=== PATIENT | female | born 1990 | race African-American/Black ===

== ENCOUNTER 2016-11-04 06:35 | Emergency (ER) | payer OTHER ==
[2016-11-04] MEDS ORDERED: SODIUM CHLORIDE 0.9% 1,000 ML IV ONE (07:16)
[2016-11-04] MEDS ORDERED: HYDROmorphone 1 MG/ML SYRINGE IVP STA ×2 (07:16→09:28)
[2016-11-04] MEDS ORDERED: ONDANSETRON 4 MG/2 ML VIAL IVP STA (07:16)
[2016-11-04] MEDS ORDERED: HYDROmorphone 1 MG/ML SYRINGE ONE ×2 (07:23→09:36)
[2016-11-04] MEDS ORDERED: ONDANSETRON 4 MG/2 ML VIAL ONE (07:23)
== END 2016-11-04 10:57 | disposition home or self-care (01) ==
DX: N83.9 Noninflammatory disorder of ovary, fallopian tube and broad ligament, unspecified (principal); R10.30 Lower abdominal pain, unspecified
CPT/HCPCS: 36415; 51798; 76830; 76856; 80053; 81001; 81025; 83690; 84702; 85025; 93976; 96374; 96375; 96376; 99283; 99284; J1170

== ENCOUNTER 2017-08-02 09:12 | Emergency (ER) | payer OTHER ==
[2017-08-02 09:43] LABS: HCG UR QUAL NEGATIVE
[2017-08-02] MEDS ORDERED: ONDANSETRON ODT 4 MG TABLET TL STA (10:17)
[2017-08-02] MEDS ORDERED: ALBUTEROL NEB 2.5 MG/3 ML INH STA (10:17)
--- NOTE | 2017-08-02 10:19 | XRAY Preliminary Report ---
Exam: XR CHEST 2 VIEW PA/LAT IMPRESSION: Normal 2-view chest radiography. [facility] SITE ID: [id number]
--- NOTE | 2017-08-02 10:20 | ED Physician Documentation ---
PD HPI URI - Stated complaint Stated Complaint: COUGH/CONGESTION - Chief complaint Chief Complaint: General - History obtained from History obtained from: Patient, Family - History of Present Illness Timing - onset: How many days ago (3) Timing duration: Days (3) Timing details: Gradual onset Pain level max: 5 Pain level now: 4 Associated symptoms: Fever (101), Chills, Sweats, Nasal congestion, Rhinorrhea, Sore throat, Productive cough (yellow/green), Dyspnea (mild). No: Ear pain, Sinus pain, Hemoptysis, Chest pain, NVD, Bilateral edema Contributing factors: Sick contact. No: Travel, Immunocompromised, Unimmunized Improves by: Rest, Medication Worsened by: Activity, Breathing Recently seen: Not recently seen Review of Systems Ears: denies: Ear pain GI: reports: Nausea, Vomiting (once). denies: Abdominal Pain, Diarrhea, Hematemesis, Bloody / black stool : denies: Dysuria, Frequency, Hesitancy, Now EGA Skin: denies: Rash PD PAST MEDICAL HISTORY - Past Medical History Past Medical History: No Cardiovascular: None Respiratory: None Neuro: None Endocrine/Autoimmune: None GI: None DISTRIBUTION DISPATCHER: Other : None HEENT: None Psych: None Musculoskeletal: None Derm: None - Past Surgical History Past Surgical History: No - Present Medications Home Medications: Ambulatory Orders Medication Instructions Recorded Confirmed Hydrocodone/Acetaminophen [[place]man 1 each PO Q6H PRN #20 tablet 11/04/16 08/02/17 5-325 Tablet] Albuterol Sulf [Ventolin Hfa 2 puffs INH Q4HR PRN #1 inhaler 08/02/17 Inhaler] Benzonatate [Tessalon Perle] 100 - 200 mg PO TID PRN #30 capsule 08/02/17 Cetirizine HCl/Pseudoephedrine 1 each PO BID PRN #30 tab.er.12h 08/02/17 [Zyrtec-D Tablet] Ondansetron Odt [Zofran] 4 mg TL Q6H PRN #10 tablet 08/02/17 - Allergies Allergies/Adverse Reactions: Allergies Allergy/AdvReac Type Severity Reaction Status Date / Time No Known Drug Allergies Allergy Verified 11/04/16 06:48 - Social History Does the pt smoke?: No Smoking Status: Never smoker Does the pt drink ETOH?: No Does the pt have substance abuse?: No - Immunizations Immunizations are current?: Yes - POLST Patient has POLST: No PD ED PE NORMAL - Vitals Vital signs reviewed: Yes - General General: Alert and oriented X 3, No acute distress, Well developed/nourished - HEENT HEENT: PERRL, Ears normal, Moist mucous membranes (Clear rhinorrhea), Other ( Mild posterior oropharyngeal erythema without exudates. Uvula midline. No trismus.) - Neck Neck: Supple, no meningeal sign, No adenopathy - Cardiac Cardiac: RRR, Strong equal pulses - Respiratory Respiratory: No respiratory distress, Other (Diminished breath sounds bilaterally, but clear) - Abdomen Abdomen: Soft, Non tender, Non distended - Derm Derm: Warm and dry - Neuro Neuro: Alert and oriented X 3 - Psych Psych: Normal mood, Normal affect Results - Vitals Vitals: Vital Signs - 24 hr 08/02/17 08/02/17 09:23 10:25 Temperature 36.0 C L Heart Rate 96 80 Respiratory 14 16 Rate Blood Pressure 151/104 H O2 Saturation 97 Oxygen O2 Source Room air - Labs Labs: Laboratory Tests 08/02/17 09:30 Ur Specific [place] 1.020 Urine HCG, Qual NEGATIVE - Rads (name of study) Chest x-ray Radiology: Prelim report reviewed, EMP read contemporaneously, See rad report ( No acute disease) PD MEDICAL DECISION MAKING - ED course Complexity details: reviewed results, re-evaluated patient, considered differential, d/w patient, d/w family ED course: Patient is a 27-year-old female who presents to the emergency department with what appears to be a viral upper respiratory infection. She is well-appearing, nontoxic. Afebrile. No hypoxia. No respiratory distress. Feels better after nebulizer treatment, I will prescribe an inhaler for home. Patient counseled regarding signs and symptoms for which I believe and urgent re-evaluation would be necessary. Patient with good understanding of and agreement to plan and is comfortable going home at this time This document was made in part using voice recognition software. While efforts are made to proofread this document, sound alike and grammatical errors may occur. Departure - Departure Disposition: 01 Home, Self Care Clinical Impression: Viral URI Condition: Good Instructions: ED URI Viral Follow-Up: IZZY TERRELL [Primary Care Provider] - Within 1 week Prescriptions: Albuterol Sulf [Ventolin Hfa Inhaler] 2 puffs INH Q4HR PRN #1 inhaler PRN Reason: Wheezing Benzonatate [Tessalon Perle] 100 - 200 mg PO TID PRN #30 capsule PRN Reason: Cough Cetirizine HCl/Pseudoephedrine [Zyrtec-D Tablet] 1 each PO BID PRN #30 tab.er.12h PRN Reason: Nasal Congestion Ondansetron Odt [Zofran] 4 mg TL Q6H PRN #10 tablet PRN Reason: Nausea / Vomiting Comments: Drink plenty of fluids and rest. Return if you worsen
--- NOTE | 2017-08-02 10:22 | XRAY Report ---
EXAM: CHEST RADIOGRAPHY EXAM DATE: 08/02/2017 10:05 AM. CLINICAL HISTORY: Productive cough and fever X 1 week. COMPARISON: None. TECHNIQUE: 2 views. FINDINGS: Lungs/Pleura: No focal opacities evident. No pleural effusion. No pneumothorax. No vascular congestio n. Normal volumes. Mediastinum: Heart and mediastinal contours are unremarkable. Other: None. IMPRESSION: Normal 2-view chest radiography. [facility] Referring Provider Line: [phone] SITE ID: [id number]
[2017-08-02] MEDS ORDERED: ONDANSETRON ODT 4 MG TABLET ONE (10:28)
[2017-08-02] MEDS ORDERED: ALBUTEROL NEB 2.5 MG/3 ML INH ONE (10:28)
[2017-08-02 11:05] VITALS: BP 138/82
== END 2017-08-02 11:04 | disposition home or self-care (01) ==
LOC: ED 09:12
DX: J06.9 Acute upper respiratory infection, unspecified (principal); B34.9 Viral infection, unspecified
CPT/HCPCS: 71020; 81025; 94640; 99283; J7613; Q0162

== ENCOUNTER 2017-11-23 07:43 | Emergency (ER) | payer OTHER ==
[2017-11-23 08:07] LABS: BILIRUBIN,URINE NEGATIVE (NEGATIVE); GLUCOSE, URINE (UA) NEGATIVE (NEGATIVE); KETONES,URINE (UA) NEGATIVE (NEGATIVE); LEUKOCYTE ESTERASE, URINE NEGATIVE (NEGATIVE); NITRITE,URINE NEGATIVE (NEGATIVE); OCCULT BLOOD,URINE MODERATE (NEGATIVE); PROTEIN,URINE NEGATIVE (NEGATIVE); UROBILINOGEN,URINE 0.2 (NORMAL) E.U./dL (NORMAL)
[2017-11-23 08:09] LABS: CLARITY,URINE CLEAR (CLEAR); HCG UR QUAL NEGATIVE
[2017-11-23 08:14] LABS: BACTERIA,URINE Rare /HPF (None Seen); RBC,URINE 0-5 /HPF (0-5); SQUAMOUS EPITHELIAL CELL,UR RARE Squamous (<= Few)
--- NOTE | 2017-11-23 08:18 | ED Physician Documentation ---
History of Present Illness - Stated complaint Stated Complaint: LOWER ABD PX - Chief complaint Chief Complaint: Abd Pain - Additonal information Additional information: hx from pt 27 y/o f has PCOS also gluten intolerant heavy menses with subsequent anemia had an ectopic a year ago txed with methotrexate no prior surgery to ER today with pelvic pain for a month vag bleed Aug-oct no ag dc bleeding started again yesterday after intercourse no NV always has diarrhea 2/2 gluten intol has not been seen for same Review of Systems Constitutional: denies: Fever, Chills GI: reports: Abdominal Pain (pelvis), Diarrhea (not new) : reports: Vaginal bleeding, Irregular menses. denies: Discharge Endocrine: denies: Easy bruising / bleeding Immunocompromised: denies: Immunocompromised PD PAST MEDICAL HISTORY - Past Medical History Cardiovascular: None Respiratory: None Neuro: None Endocrine/Autoimmune: None GI: None REDUCER: Other : None HEENT: None Psych: None Musculoskeletal: None Derm: None - Past Surgical History Past Surgical History: No - Present Medications Home Medications: Ambulatory Orders Medication Instructions Recorded Confirmed HYDROcod/ACETAM 5/325 [[place] 5/325] 1 ea PO Q6H PRN #6 tablet 11/23/17 Ibuprofen [Motrin] 400 mg PO Q6H PRN #30 tablet 11/23/17 - Allergies Allergies/Adverse Reactions: Allergies Allergy/AdvReac Type Severity Reaction Status Date / Time No Known Drug Allergies Allergy Verified 11/04/16 06:48 - Social History Does the pt smoke?: No Smoking Status: Never smoker Does the pt drink ETOH?: No Does the pt have substance abuse?: No - Immunizations Immunizations are current?: Yes - POLST Patient has POLST: No PD ED PE NORMAL - Vitals Vital signs reviewed: Yes - General General: Alert and oriented X 3 - HEENT HEENT: PERRL - Neck Neck: Supple, no meningeal sign - Cardiac Cardiac: RRR - Respiratory Respiratory: No respiratory distress, Clear bilaterally - Abdomen Abdomen: Soft, Other (mild lower abd TTP s rebound guarding) - Female 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 (Radha - os closed, blood and clear mucous, no purulent dc, no CMT, cx sent) - Derm Derm: Normal color - Extremities Extremities: No deformity - Neuro Neuro: Alert and oriented X 3 Results - Vitals Vitals: Vital Signs - 24 hr 11/23/17 11/23/17 07:55 11:54 Temperature 36.6 C 36.7 C Heart Rate 106 H 108 H Respiratory 16 20 Rate Blood Pressure 160/96 H 133/66 H O2 Saturation 98 98 Oxygen O2 Source Room air - Labs Labs: Laboratory Tests 11/23/17 11/23/17 07:55 08:50 WBC 10.8 RBC 4.80 Hgb 11.8 L Hct 35.8 L MCV 74.5 L MCH 24.5 L MCHC 32.9 RDW 15.4 H Plt Count 302 MPV 8.2 Neut # 7.6 H Lymph # 2.5 [place] # 0.5 Eos # 0.1 Baso # 0.1 Absolute Nucleated RBC 0.00 Nucleated RBC % 0.0 Urine Color YELLOW Urine Clarity CLEAR Urine pH 6.0 Ur Specific [place] 1.025 Urine Protein NEGATIVE Urine Glucose (UA) NEGATIVE Urine Ketones NEGATIVE Urine Occult Blood MODERATE H Urine Nitrite NEGATIVE Urine Bilirubin NEGATIVE Urine Urobilinogen 0.2 (NORMAL) Ur Leukocyte Esterase NEGATIVE Urine RBC 0-5 Urine WBC 0-3 Ur Squamous Epith Cells RARE Squamous Urine Bacteria Rare Ur Microscopic Review INDICATED Urine Culture Comments NOT INDICATED Urine HCG, Qual NEGATIVE - Rads (name of study) pelvic sono with doppler Radiology: See rad report (normal uterus and L ovary, 1.7 cm hemorrhagic R ovarian cyst, small FF, normal flow no torsion) Departure - Departure Disposition: 01 Home, Self Care Clinical Impression: Hemorrhagic cyst of right ovary Condition: Good Instructions: ED Cyst Ovarian Prescriptions: HYDROcod/ACETAM 5/325 [[place] 5/325] 1 ea PO Q6H PRN #6 tablet PRN Reason: Severe Pain Ibuprofen [Motrin] 400 mg PO Q6H PRN #30 tablet PRN Reason: Pain Comments: You are not You are only mildly anemic today The pelvic exam does not suggest an infection The ultrasound shows a hemorrhagic right ovarian cyst - there is no evidence of ongoing active internal bleeding and there is normal blood flow to the ovary at this time So it is OK for you to go home Recommend motrin for mild to moderate pain and only take the hydrocodone if the pain is severe If the pain suddenly escalates that could indicate more bleeding or a torsion of the ovary and you should come back to the ER Forms: Activity restrictions
[2017-11-23 09:06] LABS: BASOPHILS # (AUTO) 0.1 10^3/uL (0.0-0.1); BASOPHILS % (AUTO) 1.3 %; EOSINOPHILS # (AUTO) 0.1 10^3/uL (0.0-0.7); EOSINOPHILS % (AUTO) 0.8 %; HGB - HEMOGLOBIN 11.8 g/dL (12.0-16.0); LYMPHOCYTES # (AUTO) 2.5 10^3/uL (1.5-3.5); MEAN CORPUSCULAR HEMOGLOBIN 24.5 pg (27.0-31.0); MEAN CORPUSCULAR HGB CONC 32.9 g/dL (32.0-36.0); MEAN CORPUSCULAR VOLUME 74.5 fL (81.0-99.0); MEAN PLATELET VOLUME 8.2 fL (7.9-10.8); MONOCYTES # (AUTO) 0.5 10^3/uL (0.0-1.0); MONOCYTES % (AUTO) 4.2 %; NEUTROPHILS # (AUTO) 7.6 10^3/uL (1.5-6.6); NEUTROPHILS % (AUTO) 70.7 %; PLT - PLATELET COUNT 302 10^3/uL (130-450); RED CELL DISTRIBUTION WIDTH 15.4 % (12.0-15.0); WHITE BLOOD COUNT 10.8 x10^3/uL (4.8-10.8)
[2017-11-23 11:55] VITALS: BP 133/66
--- NOTE | 2017-11-23 12:23 | Ultrasound Report ---
PELVIC ULTRASOUND: 11/22/2017 CLINICAL INDICATION: Pelvic pain, bleeding, history of PCOS, history of ectopic . TECHNIQUE: Transabdominal pelvic ultrasound performed for global evaluation. Transvaginal pelvic ultrasound performed for detailed evaluation. Real-time scanning performed and static images obtained with Doppler. FINDINGS: The uterus is anteverted, measuring 8.6 x 5.0 x 4.3 cm. The endometrial echo complex measures 12 mm. No focal myometrial lesion is seen. The right ovary measures 4.8 x 3.9 x 2.7 cm, and demonstrates an irregular 1.7 cm cyst, likely representing a ruptured hemorrhagic cyst. A small amount of free fluid is noted in the right adnexa. The left ovary measures 3.6 x 2.7 x 1.7 cm, and appears unremarkable. Both ovaries demonstrate normal flow. IMPRESSION: LIKELY RUPTURED HEMORRHAGIC RIGHT OVARIAN CYST, WITH A SMALL AMOUNT OF ADJACENT FLUID. NORMAL UTERUS AND LEFT OVARY. TD: 11/23/2017 12:23
== END 2017-11-23 12:35 | disposition home or self-care (01) ==
LOC: ED 07:43
DX: N83.201 Unspecified ovarian cyst, right side (principal)
CPT/HCPCS: 36415; 76830; 76856; 81001; 81003; 81025; 85025; 87086; 87491; 87591; 93975; 99283

== ENCOUNTER 2019-04-22 07:12 | Emergency (ER) | payer OTHER ==
[2019-04-22 07:21] VITALS: BP 129/95
[2019-04-22] MEDS ORDERED: TETRACAINE 0.5% OPHTH DROPS 4 ML RIGHTEYE ONE (07:24)
--- NOTE | 2019-04-22 07:30 | ED Physician Documentation ---
History of Present Illness - Stated complaint Stated Complaint: RT EYE PX - Chief complaint Chief Complaint: Heent - Additonal information Additional information: This is a 28-year-old female presents with Right upper eyelid pain and swelling is been progressing over the past 2 days. Patient states that she was wiping her eye 2 days ago and that afternoon she began developing some discomfort in her eye which has progressed. When she lifts the eyelid she can see a white spot underneath it. She denies any foreign body in her eye. She states her vision appears normal, although as her eyelid has swollen it has become slightly blurry. The eyeball itself feels okay to her. She denies any fever or chills, she has no history of eye problems other than she wears glasses. Review of Systems Eyes: reports: Irritation. denies: Decreased vision Neurologic: denies: Headache Immunocompromised: denies: Immunocompromised PD PAST MEDICAL HISTORY - Past Medical History Cardiovascular: None Respiratory: None Endocrine/Autoimmune: None GI: None MARKETING COMMUNICATIONS MANAGER: Other : None HEENT: None Psych: None Musculoskeletal: None Derm: None - Past Surgical History Past Surgical History: No - Present Medications Home Medications: Ambulatory Orders Medication Instructions Recorded Confirmed HYDROcod/ACETAM 5/325 [[place] 5/325] 1 ea PO Q6H PRN #6 tablet 11/23/17 Ibuprofen [Motrin] 400 mg PO Q6H PRN #30 tablet 11/23/17 Erythromycin Base [Erythromycin 1 applic OP TID #3.5 oint...g. 04/22/19 Ophthalmic Ointment] - Allergies Allergies/Adverse Reactions: Allergies Allergy/AdvReac Type Severity Reaction Status Date / Time No Known Drug Allergies Allergy Verified 11/04/16 06:48 - Social History Does the pt smoke?: No Smoking Status: Never smoker Does the pt drink ETOH?: No Does the pt have substance abuse?: No - Immunizations Immunizations are current?: Yes - POLST Patient has POLST: No PD ED PE NORMAL - Vitals Vital signs reviewed: Yes - General General: Alert and oriented X 3, No acute distress - HEENT HEENT: Other (In the right upper eyelid there is a small 1-2mm hordeolum underneath the upper lid with surrounded by a small area of erythema. The upper eyelid is slightly edematous, but patient can hold her eyes open without issue. Pupils are equal round reactive to light bilaterally, extra ocular muscles are intact. Visual acuity 20/20 In the right eye, left eye, and combined. Fluorescein staining reveals no signs of abrasion or abnormal uptake.) - Neck Neck: Supple, no meningeal sign - Respiratory Respiratory: No respiratory distress - Derm Derm: Warm and dry - Neuro Neuro: Alert and oriented X 3 - Psych Psych: Normal mood, Normal affect Results - Vitals Vitals: Vital Signs - 24 hr 04/22/19 07:16 Temperature 36.9 C Heart Rate 96 Respiratory 19 Rate Blood Pressure 129/95 H O2 Saturation 99 Oxygen O2 Source Room air PD MEDICAL DECISION MAKING - ED course Complexity details: considered differential (Hordeolum, chalazion, abrasion, foreign body, pre-septal cellulitis) ED course: On exam patient has perfect visual acuity corrected with her glasses, her globe itself appears normal, there is no injection or inflammation of conjunctiva, there is an obvious hordeolum in the right upper eyelid. On fluorescein staining there are no signs of abrasion. Careful examination of the eye reveals no foreign body. I discussed with her that this appears to be a hordeolum/stye, she should be treating it with warm compresses at least 5 times daily. I did prescribe her some erythromycin ointment to keep her eye moist and prevent infection, and I provided her with the contact information for ophthalmology with whom she should follow-up in 10 to 14 days if she is not having improvement of her symptoms. She should return the emergency department if she has changes in her vision, worsening symptoms, redness that is spreading outward from the eyelid There are no significant signs of cellulitis at this time. Pt agreed and was discharged home. Departure - Departure Clinical Impression: Hordeolum Qualifiers: Hordeolum type: unspecified type Laterality: right Eyelid: upper Qualified Code(s): H00.011 - Hordeolum externum right upper eyelid Condition: Good Instructions: ED Hordeolum Follow-Up: Raymond King MD [Provider Admit Priv/Credential] - (In 1-2 weeks if having continued symptoms) Prescriptions: Erythromycin Base [Erythromycin Ophthalmic Ointment] 1 applic OP TID #3.5 oint...g. Comments: You were seen today for redness and pain in your upper eyelid, you appear to have a hordeolum/stye. Apply warm compresses to the eye 5 times daily. You may use erythromycin ointment in your eye to keep it moist and help prevent infection. Do not wear contact lenses, do not wear make-up on your eye. If you have continued symptoms in 2 weeks you should follow-up with an rn charge. Return to emergency department if You have increasing pain, changes in your vision, or other concerning symptoms.
== END 2019-04-22 08:02 | disposition home or self-care (01) ==
LOC: ED 07:12
DX: H00.011 Hordeolum externum right upper eyelid (principal)
CPT/HCPCS: 99282; 99284